=== PATIENT | female | born 1935 | race Caucasian/White ===

== ENCOUNTER 2016-10-12 10:06 | Day surgery (SDC) | payer MEDICARE, OTHER ==
--- NOTE | ~2016-10-12 | EGD ---
EGD REPORT [facility] [address] [id number] NAME: AMADA MCBRIDE : 37 [place]US : [place] [facility] [place] [id number] AGE: 81 ADM/REG DATE : 10/12/16 MR#: [id number] REPORT SERV DATE: 10/12/16 DICTATED BY: CHANEL JEREZ DATE: 10/12/16 REPORT STATUS : Draft TRANS[facility]IBED BY: [facility] DATE: 10/12/16 Endoscopy Center Patient Name: Amada Mcbride Date of : 1935 Attending MD: CHANEL JEREZ, Procedure Date No Time: 10/12/2016 Procedure: Upper EUS Indications: Gastric deformity on endoscopy/Subepithelial tumor versus extrinsic compression Referring MD: ERLINDA WATSON III, MD Medicines: Monitored Anesthesia Care Complications: No immediate complications. Estimated blood loss: None. Procedure: Pre-Anesthesia Assessment: - ASA Grade Assessment: II - A patient with mild systemic disease. After obtaining informed consent, the endoscope was passed under direct vision. Throughout the procedure, the patient's blood pressure, pulse, and oxygen saturations were monitored continuously. The GIF [id number] was introduced through the mouth, and advanced to the second part of duodenum. The Endoscope was introduced through the mouth, and advanced to the second part of duodenum. Findings: Endoscopic Finding : The examined esophagus was endoscopically normal. The entire examined stomach was endoscopically normal. The cardia and gastric fundus were normal on retroflexion. The examined duodenum was endoscopically normal. Endosonographic Finding : A lobulated intramural (subepithelial) lesion was found in the cardia of the stomach. The lesion was hypoechoic. Sonographically, the lesion appeared to originate from the muscularis propria (Layer 4). The lesion measured 21 mm (in maximum thickness). The lesion also measured 9 mm in diameter. The outer endosonographic borders were well defined. There was no sign of significant endosonographic abnormality in the entire pancreas. There was no sign of significant endosonographic abnormality in the common bile duct. There was no sign of significant endosonographic abnormality in the examined duodenum. There was no sign of significant endosonographic abnormality in the esophagus. EGD REPORT [address] [address] NAME: AMADA MCBRIDE : 37 [place]US : [place] [facility] [place]#: [id number] AGE: 81 ADM/REG DATE : 10/12/16 MR#: [id number] REPORT SERV DATE: 10/12/16 DICTATED BY: CHANEL JEREZ DATE: 10/12/16 REPORT STATUS : Draft TRANSCRIBED BY: [employer] DATE: 10/12/16 Impression: - Normal esophagus. - Normal stomach. - Normal examined duodenum. - An intramural (subepithelial) lesion was found in the cardia of the stomach. The lesion appeared to originate from within the muscularis propria (Layer 4). The diagnosis is a benign smooth muscle neoplasm. - There was no sign of significant pathology in the entire pancreas. - There was no sign of significant pathology in the common bile duct. - There was no sign of significant pathology in the examined duodenum. - There was no sign of significant pathology in the esophagus. Recommendation: - Return to previous diet. - Continue present medications. - Repeat the upper endoscopic ultrasound in 2 years for surveillance. Procedure Code(s): --- Professional --- 37090, Esophagogastroduodenoscopy, flexible, transoral; with endoscopic ultrasound examination, including the esophagus, stomach, and either the duodenum or a surgically altered stomach where the jejunum is examined distal to the anastomosis Diagnosis Code(s): --- Professional --- D13.1, Benign neoplasm of stomach K31.9, Disease of stomach and duodenum, unspecified CPT copyright 2013 [employer]. All rights reserved. The codes documented in this report are preliminary and upon veneer grader review may be revised to meet current compliance requirements. CHANEL JEREZ, 10/12/2016 12:40 PM Number of Addenda: 0 Note Initiated On: 10/12/2016 12:12 PM Scope Withdrawal Time 0 hours 0 minutes 0 seconds [id number] [place] [id number]
[~2016-10-12 10:06] MED LIST: ALIGN PO; ALIGN4 MG PO; ANUSOL-HC2.5 % PR; ASAB PO; ATRONASAL3 NAS; ATRONASAL6 NAS; CALTRA600D PO; CINNAMONPO PO; HYDROCORT12 TOP; KLOR-CON 1010 MEQ PO; L20 PO; L40 PO; LEVSINTAB PO; MIRALAXPKT PO; OS500+D PO; PRAVACHOL40 MG PO; PRILO PO; PROBIOTIC PO; PROTONIX20 MG PO; REFRESH OPH; TOPXL25 PO; ULTIMATE FLORA PO; VITAMIN B-12 PO; VITAMIN D31000 UNIT PO; Vitamin B-Twelve PO; XIFAXAN550 MG PO; [UNRECOGNIZED DRUG - OTHER]; [UNRECOGNIZED DRUG - OTHER] PO
[2016-10-12 11:04] LABS: BUN (BLOOD UREA NITROGEN) 19 MG/DL (6-23); CALCIUM, SERUM 8.9 MG/DL (8.5-10.4); CHLORIDE, SERUM 106 MMOL/L (96-112); CO2 (CARBON DIOXIDE) 31 MMOL/L (24-34); CREATININE 0.62 MG/DL (0.55-1.02); GFR AFRICAN AMERICAN 99 ML/MIN (>=60); GFR NON AFRICAN AMERICAN 85 ML/MIN (>=60); GLUCOSE, SERUM 105 MG/DL (60-99); POTASSIUM, SERUM 4.2 MMOL/L (3.5-5.3); SODIUM, SERUM 145 MMOL/L (135-148)
== END 2016-10-12 23:59 | disposition home health service (06) ==
LOC: DMU 10:06
PROVIDERS: Anesthesiology; Internal Medicine Gastroenterology
PROC: BD47ZZZ Ultrasonography of Gastrointestinal Tract (ICD-10-PCS; 2016-10-12)
PROC: 0DJ08ZZ Inspection of Upper Intestinal Tract, Via Natural or Artificial Opening Endoscopic (ICD-10-PCS; principal; 2016-10-12 11:30)
DX: K31.9 Disease of stomach and duodenum, unspecified (principal); I10 Essential (primary) hypertension; D86.9 Sarcoidosis, unspecified; E78.00 Pure hypercholesterolemia, unspecified; K21.9 Gastro-esophageal reflux disease without esophagitis; Z88.8 Allergy status to other drugs, medicaments and biological substances; Z91.040 Latex allergy status; I48.91 Unspecified atrial fibrillation; M19.90 Unspecified osteoarthritis, unspecified site; Z90.49 Acquired absence of other specified parts of digestive tract; Z90.710 Acquired absence of both cervix and uterus; Z98.890 Other specified postprocedural states
CPT/HCPCS: 80048; C1725